=== PATIENT | male | born 1935 | race Two or more races ===

== ENCOUNTER 2023-04-19 23:56 | Inpatient (IN) | payer MEDICARE, OTHER ==
[~2023-04-19] VITALS: Ht 177.8 cm; Wt 69.9 kg
[2023-04-20] MEDS ORDERED: CEFTRIAXONE 1GM PREMIX 50 ML IV ONE (00:30)
[2023-04-20] MEDS ORDERED: ACETAMINOPHEN 650MG SUPP PR SCH (00:30)
[2023-04-20] MEDS ORDERED: CEFTRIAXONE 1GM PREMIX 50 ML IV NR (03:00)
[2023-04-20 04:52] LABS: HEMATOCRIT. 26.9 % (42.0-52.0); HEMOGLOBIN. 8.6 g/dL (14.0-18.0); MEAN CORPUSCULAR HEMOGLOBIN 25.6 pg (28.0-32.0); MEAN CORPUSCULAR HGB CONC 31.8 g/dL (31.0-37.0); MEAN CORPUSCULAR VOLUME 80.4 fL (80.0-94.0); MEAN PLATELET VOLUME 8.6 fl (7.4-10.4); PLATELET 292 x1000/uL (130-400); RED BLOOD CELL COUNT 3.35 mill/uL (4.7-6.1); RED CELL DISTRIBUTION WIDTH 15.1 % (11.6-14.6); WHITE BLOOD COUNT 24.3 x1000/uL (4.5-11.0)
[2023-04-20 04:58] LABS: INR 1.6; PROTHROMBIN TIME 16.4 sec (9.6-11.0)
[2023-04-20 05:02] LABS: DIFFERENTIAL COMMENT 1
[2023-04-20 05:09] LABS: AMMONIA < 10 uMol/L (<32)
[2023-04-20 05:18] LABS: ACETAMINOPHEN 11 ug/mL (10-30); ALANINE AMINOTRANSFERASE < 7 IU/L (10-49); ALBUMIN 3.1 g/dL (3.2-4.8); ASPARTATE AMINOTRANSFERASE 18 IU/L (<34); BILIRUBIN TOTAL 0.5 mg/dL (0.1-1.0); CALCIUM 9.8 mg/dL (8.7-10.4); CARBON DIOXIDE 25 mEq/L (21-32); CHLORIDE 107 mEq/L (98-107); CREATINE KINASE 100 IU/L (46-171); CREATININE 3.2 mg/dL (0.6-1.3); GLUCOSE 130 mg/dL (70-105); PROTEIN TOTAL 7.4 g/dL (6.0-8.3); SODIUM 144 mEq/L (136-145); UREA NITROGEN BLOOD 69 mg/dL (9-23)
[2023-04-20 06:09] LABS: PLATELET ESTIMATE NORMAL
[2023-04-20 06:22] LABS: POTASSIUM 2.1 mEq/L (3.5-5.1); TROPONIN I HIGH SENSITIVITY 243 ng/L (3.0-53)
[2023-04-20 06:23] LABS: ETHANOL BLOOD < 10 mg/dL (<10)
[2023-04-20] MEDS ORDERED: POTASSIUM CHLORIDE INJ 40 MEQ in DEXT 5% WATER 500 ML IV ONE (06:45)
[2023-04-20] MEDS: KCL 20MEQ/100ML X 2 FOR TOTAL KCL 40MEQ/200ML IV SCH ×2 (08:55→09:00)
[2023-04-20] MEDS ORDERED: KCL 20MEQ/100ML X 2 FOR TOTAL KCL 40MEQ/200ML IV SCH (12:30)
[2023-04-20] MEDS ORDERED: HYDROCODONE/ACETAMINOPHEN 5/325MG TABLET PO PRN (12:45)
[2023-04-20] MEDS ORDERED: CLONIDINE 0.1MG TABLET PO PRN (12:45)
[2023-04-20] MEDS ORDERED: MAGNESIUM/ALUMINUM HYDROXIDE/SIMETHICONE 30ML UDC PO PRN (12:45)
[2023-04-20] MEDS ORDERED: DEXTROSE 50% WATER 50ML SYRINGE IV PRN ×2 (13:00)
[2023-04-20] MEDS: SODIUM CHLORIDE 0.9% 1,000 ML IV SCH (13:12)
[2023-04-20] MEDS ORDERED: VANCOMYCIN 1.5GM/250ML 250 ML IV NR (14:00)
[2023-04-20] MEDS: PIPERACILLIN/TAZOBACTAM 3.375 G in DEXTROSE 5% WATER 50 ML IV SCH (15:06)
[2023-04-20] MEDS ORDERED: NALOXONE HCL 0.4MG/ML VIAL IV PRN (15:15)
[2023-04-20] MEDS ORDERED: KCL 20MEQ/100ML PREMIX 100 ML IV NR (16:00)
[2023-04-20] MEDS: BLOOD SUGAR DIAGNOSTIC STRIP TEST SCH ×2 (16:59→21:59)
[2023-04-20] MEDS: INSULIN LISPRO 100 UNITS/ML SUBCUT SCH ×2 (17:15→21:00)
[2023-04-20 21:33] LABS: CALCIUM 9.8 mg/dL (8.7-10.4); CARBON DIOXIDE 23 mEq/L (21-32); CHLORIDE 110 mEq/L (98-107); CREATININE 3.4 mg/dL (0.6-1.3); GLUCOSE 89 mg/dL (70-105); PHOSPHORUS 2.3 mg/dL (2.5-4.9); SODIUM 144 mEq/L (136-145); UREA NITROGEN BLOOD 77 mg/dL (9-23)
[2023-04-20] MEDS: ENOXAPARIN 30MG/0.3ML SYR SUBCUT SCH (21:53)
[2023-04-20 21:57] LABS: POTASSIUM 2.7 mEq/L (3.5-5.1)
[2023-04-20] MEDS ORDERED: POTASSIUM CHLORIDE INJ 40 MEQ in DEXT 5% WATER 500 ML IV NR (23:00)
[2023-04-21 03:41] VITALS: BP 99/67; PULSE 101; RESP 18; TEMP 97.8
[2023-04-21 04:00] VITALS: BP 67/43; PULSE 109; RESP 17; TEMP 98.4
[2023-04-21 07:01] LABS: HEMATOCRIT. 25.6 % (42.0-52.0); HEMOGLOBIN. 8.4 g/dL (14.0-18.0); MEAN CORPUSCULAR HGB CONC 32.8 g/dL (31.0-37.0); MEAN CORPUSCULAR VOLUME 79.4 fL (80.0-94.0); MEAN PLATELET VOLUME 8.7 fl (7.4-10.4); PLATELET 279 x1000/uL (130-400); RED BLOOD CELL COUNT 3.23 mill/uL (4.7-6.1); RED CELL DISTRIBUTION WIDTH 15.3 % (11.6-14.6); WHITE BLOOD COUNT 23.3 x1000/uL (4.5-11.0)
[2023-04-21 07:07] LABS: DIFFERENTIAL COMMENT 1
[2023-04-21 07:46] LABS: ALANINE AMINOTRANSFERASE 9 IU/L (10-49); ALBUMIN 2.9 g/dL (3.2-4.8); ASPARTATE AMINOTRANSFERASE 27 IU/L (<34); BILIRUBIN DIRECT 0.3 mg/dL (<=3.0); BILIRUBIN TOTAL 0.5 mg/dL (0.1-1.0); CALCIUM 9.8 mg/dL (8.7-10.4); CARBON DIOXIDE 22 mEq/L (21-32); CHLORIDE 110 mEq/L (98-107); CREATININE 3.9 mg/dL (0.6-1.3); GLUCOSE 110 mg/dL (70-105); PHOSPHORUS 1.8 mg/dL (2.5-4.9); PROTEIN TOTAL 6.9 g/dL (6.0-8.3); SODIUM 145 mEq/L (136-145); UREA NITROGEN BLOOD 89 mg/dL (9-23)
[2023-04-21] MEDS: INSULIN LISPRO 100 UNITS/ML SUBCUT SCH ×4 (07:50→21:00)
[2023-04-21 08:00] VITALS: BP 94/43; PULSE 63; RESP 22; TEMP 99
[2023-04-21 09:05] LABS: POTASSIUM 2.8 mEq/L (3.5-5.1); TROPONIN I HIGH SENSITIVITY 146 ng/L (3.0-53)
[2023-04-21] MEDS ORDERED: POTASSIUM CHLORIDE 20MEQ/PACKET PO SCH (10:00)
[2023-04-21] MEDS: PIPERACILLIN/TAZOBACTAM 3.375 G in DEXTROSE 5% WATER 50 ML IV SCH ×4 (11:17→21:30)
[2023-04-21] MEDS: PANTOPRAZOLE SODIUM 40 MG/VIAL IV SCH (11:17)
[2023-04-21 12:00] VITALS: BP 92/47; PULSE 74; RESP 20; TEMP 100.9
[2023-04-21] MEDS: BLOOD SUGAR DIAGNOSTIC STRIP TEST SCH ×3 (12:20→21:31)
[2023-04-21] MEDS: POTASSIUM CHLORIDE INJ 40 MEQ in DEXT 5% WATER 250 ML IV SCH ×2 (14:57→18:00)
[2023-04-21] MEDS: SODIUM CHLORIDE 0.9% 1,000 ML IV SCH (14:58)
[2023-04-21] MEDS ORDERED: VANCOMYCIN 1.25GM PMX (XELLIA) 250 ML IV NR (15:00)
[2023-04-21 16:00] VITALS: BP 101/54; PULSE 104; RESP 21; TEMP 99.3
[2023-04-21 17:06] LABS: MICROCYTOSIS 1+; PLATELET ESTIMATE NORMAL
[2023-04-21 20:00] VITALS: BP 120/54; PULSE 97; RESP 19; TEMP 97.8
[2023-04-21] MEDS: ENOXAPARIN 30MG/0.3ML SYR SUBCUT SCH (21:31)
[2023-04-22] VITALS: BP 119/89; PULSE 108; RESP 18; TEMP 98.1
[2023-04-22 04:00] VITALS: BP 107/60; PULSE 86; RESP 18; TEMP 97.2
[2023-04-22] MEDS: BLOOD SUGAR DIAGNOSTIC STRIP TEST SCH ×3 (06:38→21:00)
[2023-04-22] MEDS: INSULIN LISPRO 100 UNITS/ML SUBCUT SCH ×3 (06:51→21:00)
[2023-04-22 07:42] LABS: HEMATOCRIT. 24.6 % (42.0-52.0); MEAN CORPUSCULAR HEMOGLOBIN 25.8 pg (28.0-32.0); MEAN CORPUSCULAR HGB CONC 32.7 g/dL (31.0-37.0); PLATELET 262 x1000/uL (130-400); RED BLOOD CELL COUNT 3.12 mill/uL (4.7-6.1); RED CELL DISTRIBUTION WIDTH 15.4 % (11.6-14.6); WHITE BLOOD COUNT 19.1 x1000/uL (4.5-11.0)
[2023-04-22 07:53] LABS: ALANINE AMINOTRANSFERASE 10 IU/L (10-49); ALBUMIN 2.7 g/dL (3.2-4.8); ASPARTATE AMINOTRANSFERASE 24 IU/L (<34); BILIRUBIN DIRECT 0.3 mg/dL (<=3.0); BILIRUBIN TOTAL 0.5 mg/dL (0.1-1.0); CALCIUM 9.8 mg/dL (8.7-10.4); CARBON DIOXIDE 21 mEq/L (21-32); CHLORIDE 114 mEq/L (98-107); CREATININE 4.2 mg/dL (0.6-1.3); GLUCOSE 101 mg/dL (70-105); POTASSIUM 3.4 mEq/L (3.5-5.1); PROTEIN TOTAL 6.5 g/dL (6.0-8.3); SODIUM 147 mEq/L (136-145)
[2023-04-22 07:56] LABS: UREA NITROGEN BLOOD 102 mg/dL (9-23)
[2023-04-22 08:00] VITALS: BP 116/75; PULSE 110; RESP 21; TEMP 98.1
[2023-04-22 08:03] LABS: DIFFERENTIAL COMMENT 1
[2023-04-22] MEDS: PIPERACILLIN/TAZOBACTAM 3.375 G in DEXTROSE 5% WATER 50 ML IV SCH ×2 (08:59→21:00)
[2023-04-22] MEDS: PANTOPRAZOLE SODIUM 40 MG/VIAL IV SCH (09:00)
[2023-04-22] MEDS ORDERED: POTASSIUM CHLORIDE INJ 40 MEQ in DEXT 5% WATER 250 ML IV ONE (09:15)
[2023-04-22] MEDS ORDERED: KCL 20MEQ/100ML X 2 FOR TOTAL KCL 40MEQ/200ML IV SCH (10:00)
[2023-04-22] MEDS ORDERED: DEXT 5%/LACTATED RINGERS 1,000 ML IV SCH (10:15)
[2023-04-22 12:00] VITALS: BP 120/87; PULSE 102; RESP 20; TEMP 97.5
[2023-04-22] MEDS ORDERED: LORAZEPAM 2MG/ML INJ IV NR (12:00)
[2023-04-22] MEDS ORDERED: POTASSIUM PHOS,M-BASIC-D-BASIC 20 MMOL in DEXT 5% WATER 243.3333 ML IV NR (13:00)
[2023-04-22] MEDS: DEXTROSE 5% WATER 1,000 ML IV SCH ×2 (13:45→23:45)
[2023-04-22 15:55] LABS: MICROCYTOSIS 1+; PLATELET ESTIMATE NORMAL
[2023-04-22 16:00] VITALS: BP 120/89; PULSE 110; RESP 20; TEMP 97.3
[2023-04-22 18:08] LABS: HEMATOCRIT 23.8 % (42.0-52.0); HEMOGLOBIN 7.5 g/dL (14.0-18.0)
[2023-04-22 18:22] LABS: CALCIUM 10.1 mg/dL (8.7-10.4); CARBON DIOXIDE 19 mEq/L (21-32); CHLORIDE 116 mEq/L (98-107); CREATINE KINASE 25 IU/L (46-171); CREATININE 4.4 mg/dL (0.6-1.3); GLUCOSE 112 mg/dL (70-105); PHOSPHORUS 2.5 mg/dL (2.5-4.9); POTASSIUM 3.6 mEq/L (3.5-5.1); SODIUM 148 mEq/L (136-145)
[2023-04-22 18:38] LABS: UREA NITROGEN BLOOD 111 mg/dL (9-23)
[2023-04-22 20:00] VITALS: BP 101/47; PULSE 103; RESP 19; TEMP 99
[2023-04-22] MEDS ORDERED: VANCOMYCIN 750MG PREMIX 150 ML IV NR (20:00)
[2023-04-23] VITALS (31 sets, daily range): BP systolic 91–118; BP diastolic 44–98; PULSE 82–105; RESP 10–34; TEMP 97.7–99.9
[2023-04-23] MEDS: INSULIN LISPRO 100 UNITS/ML SUBCUT SCH ×4 (07:50→21:50)
[2023-04-23 07:53] LABS: HEMATOCRIT. 23.1 % (42.0-52.0); HEMOGLOBIN. 7.5 g/dL (14.0-18.0); MEAN CORPUSCULAR HEMOGLOBIN 25.7 pg (28.0-32.0); MEAN CORPUSCULAR HGB CONC 32.6 g/dL (31.0-37.0); MEAN CORPUSCULAR VOLUME 78.8 fL (80.0-94.0); MEAN PLATELET VOLUME 8.8 fl (7.4-10.4); PLATELET 247 x1000/uL (130-400); RED BLOOD CELL COUNT 2.93 mill/uL (4.7-6.1); RED CELL DISTRIBUTION WIDTH 15.5 % (11.6-14.6); WHITE BLOOD COUNT 15.4 x1000/uL (4.5-11.0)
[2023-04-23 08:05] LABS: DIFFERENTIAL COMMENT 1
[2023-04-23 08:13] LABS: CREATININE 4.4 mg/dL (0.6-1.3); POTASSIUM 3.1 mEq/L (3.5-5.1)
[2023-04-23] MEDS: BLOOD SUGAR DIAGNOSTIC STRIP TEST SCH ×4 (08:18→21:48)
[2023-04-23] MEDS: PANTOPRAZOLE SODIUM 40 MG/VIAL IV SCH (09:09)
[2023-04-23] MEDS: PIPERACILLIN/TAZOBACTAM 3.375 G in DEXTROSE 5% WATER 50 ML IV SCH ×2 (09:10→21:43)
[2023-04-23] MEDS: DEXTROSE 5% WATER 1,000 ML IV SCH (09:10)
[2023-04-23] MEDS ORDERED: POTASSIUM CHLORIDE 20MEQ/PACKET PO NR ×2 (09:30→16:28)
[2023-04-23] MEDS ORDERED: SODIUM CHLORIDE 0.9% 100 ML IV ONE (12:45)
[2023-04-23] MEDS: CITRIC ACID/SODIUM CITRATE SOLN 30ML UDC PO SCH ×2 (13:00→16:55)
[2023-04-23 14:06] LABS: ANISOCYTOSIS 1+; PLATELET ESTIMATE NORMAL
[2023-04-24] VITALS (48 sets, daily range): BP systolic 72–109; BP diastolic 49–75; PULSE 70–97; RESP 12–29; TEMP 97.4–98.6
[2023-04-24] MEDS: DEXTROSE 5% WATER 1,000 ML IV SCH ×3 (00:35→16:07)
[2023-04-24 05:43] LABS: HEMATOCRIT. 22.9 % (42.0-52.0); MEAN CORPUSCULAR HEMOGLOBIN 25.1 pg (28.0-32.0); MEAN CORPUSCULAR HGB CONC 30.8 g/dL (31.0-37.0); MEAN CORPUSCULAR VOLUME 81.6 fL (80.0-94.0); MEAN PLATELET VOLUME 8.9 fl (7.4-10.4); PLATELET 231 x1000/uL (130-400); RED CELL DISTRIBUTION WIDTH 15.8 % (11.6-14.6); WHITE BLOOD COUNT 13.1 x1000/uL (4.5-11.0)
[2023-04-24 06:06] LABS: CALCIUM 9.5 mg/dL (8.7-10.4); CREATININE 4.9 mg/dL (0.6-1.3); POTASSIUM 2.9 mEq/L (3.5-5.1)
[2023-04-24 06:25] LABS: DIFFERENTIAL COMMENT 1
[2023-04-24] MEDS: BLOOD SUGAR DIAGNOSTIC STRIP TEST SCH ×4 (06:30→20:49)
[2023-04-24] MEDS: INSULIN LISPRO 100 UNITS/ML SUBCUT SCH ×4 (07:00→20:53)
[2023-04-24] MEDS ORDERED: POTASSIUM CHLORIDE INJ 40 MEQ in DEXT 5% WATER 250 ML IV ONE (08:00)
[2023-04-24] MEDS: PANTOPRAZOLE SODIUM 40 MG/VIAL IV SCH (09:02)
[2023-04-24] MEDS: KCL 20MEQ/100ML X 2 FOR TOTAL KCL 40MEQ/200ML IV SCH ×2 (09:02→11:28)
[2023-04-24] MEDS: CITRIC ACID/SODIUM CITRATE SOLN 30ML UDC PO SCH ×3 (09:02→17:06)
[2023-04-24] MEDS: PIPERACILLIN/TAZOBACTAM 3.375 G in DEXTROSE 5% WATER 50 ML IV SCH ×2 (09:03→20:38)
[2023-04-24 09:37] LABS: PHOSPHORUS 3.4 mg/dL (2.5-4.9)
[2023-04-24] MEDS: MIDODRINE HCL 5MG TABLET PO SCH ×3 (11:27→17:06)
[2023-04-24 14:35] LABS: ANISOCYTOSIS 1+; HYPOCHROMASIA 1+; PLATELET ESTIMATE NORMAL
[2023-04-25] VITALS (44 sets, daily range): BP systolic 84–113; BP diastolic 45–70; PULSE 78–98; RESP 18–34; TEMP 98.3–100.6
[2023-04-25] MEDS: DEXTROSE 5% WATER 1,000 ML IV SCH (00:53)
[2023-04-25 06:00] LABS: HEMATOCRIT. 23.2 % (42.0-52.0); HEMOGLOBIN. 7.4 g/dL (14.0-18.0); MEAN CORPUSCULAR HEMOGLOBIN 25.6 pg (28.0-32.0); MEAN CORPUSCULAR HGB CONC 32.1 g/dL (31.0-37.0); PLATELET 277 x1000/uL (130-400); WHITE BLOOD COUNT 13.9 x1000/uL (4.5-11.0)
[2023-04-25 06:10] LABS: CALCIUM 9.3 mg/dL (8.7-10.4); CARBON DIOXIDE 19 mEq/L (21-32); CHLORIDE 108 mEq/L (98-107); CREATININE 4.8 mg/dL (0.6-1.3); GLUCOSE 164 mg/dL (70-105); PHOSPHORUS 2.8 mg/dL (2.5-4.9); SODIUM 142 mEq/L (136-145)
[2023-04-25 06:16] LABS: POTASSIUM 2.7 mEq/L (3.5-5.1); UREA NITROGEN BLOOD 109 mg/dL (9-23)
[2023-04-25] MEDS ORDERED: POTASSIUM CHLORIDE 20MEQ/PACKET PO NR (07:00)
[2023-04-25 07:03] LABS: DIFFERENTIAL COMMENT 1
[2023-04-25] MEDS: KCL 20MEQ/100ML PREMIX 100 ML IV SCH ×2 (07:10→10:12)
[2023-04-25] MEDS: BLOOD SUGAR DIAGNOSTIC STRIP TEST SCH ×4 (07:37→21:11)
[2023-04-25] MEDS: INSULIN LISPRO 100 UNITS/ML SUBCUT SCH ×4 (07:45→21:15)
[2023-04-25 09:35] LABS: ANISOCYTOSIS 1+; PLATELET ESTIMATE NORMAL
[2023-04-25] MEDS ORDERED: DEXT 5% WATER + KCL 40MEQ/L 1,000 ML IV SCH (10:00)
[2023-04-25] MEDS: CITRIC ACID/SODIUM CITRATE SOLN 30ML UDC PO SCH ×3 (10:10→17:13)
[2023-04-25] MEDS: MIDODRINE HCL 5MG TABLET PO SCH ×3 (10:11→17:13)
[2023-04-25] MEDS: PANTOPRAZOLE SODIUM 40 MG/VIAL IV SCH (10:12)
[2023-04-25] MEDS: PIPERACILLIN/TAZO 3.375G/50ML 50 ML IV SCH ×2 (10:14→21:22)
[2023-04-25] MEDS ORDERED: LORAZEPAM 2MG/ML INJ IV PRN (11:30)
[2023-04-25] MEDS ORDERED: VANCOMYCIN 500MG PREMIX 100 ML IV NR (12:00)
[2023-04-25] MEDS: POTASSIUM CHLORIDE INJ 40 MEQ in DEXTROSE 5% WATER 1,000 ML IV SCH (12:32)
[2023-04-25] MEDS: MENTHOL/LANOLIN/CALAMINE/ZN OX OINT 71GM TOP SCH ×2 (17:13→21:22)
[2023-04-25 21:53] LABS: POTASSIUM 3.6 mEq/L (3.5-5.1)
[2023-04-25] MEDS: ACETAMINOPHEN 650MG/20.3ML UDC PO PRN (21:56)
[2023-04-26] MEDS: POTASSIUM CHLORIDE INJ 40 MEQ in DEXTROSE 5% WATER 1,000 ML IV SCH ×2 (04:00→20:42)
[2023-04-26 07:20] LABS: HEMATOCRIT. 22.7 % (42.0-52.0); HEMOGLOBIN. 7.4 g/dL (14.0-18.0); MEAN CORPUSCULAR HEMOGLOBIN 25.8 pg (28.0-32.0); MEAN CORPUSCULAR HGB CONC 32.8 g/dL (31.0-37.0); MEAN CORPUSCULAR VOLUME 78.7 fL (80.0-94.0); PLATELET 289 x1000/uL (130-400); RED BLOOD CELL COUNT 2.89 mill/uL (4.7-6.1)
[2023-04-26 07:23] LABS: DIFFERENTIAL COMMENT 1
[2023-04-26] MEDS: BLOOD SUGAR DIAGNOSTIC STRIP TEST SCH ×4 (07:30→20:29)
[2023-04-26 07:32] LABS: CARBON DIOXIDE 19 mEq/L (21-32); CHLORIDE 108 mEq/L (98-107); CREATININE 4.8 mg/dL (0.6-1.3); GLUCOSE 180 mg/dL (70-105); POTASSIUM 3.3 mEq/L (3.5-5.1); SODIUM 141 mEq/L (136-145)
[2023-04-26 07:34] LABS: UREA NITROGEN BLOOD 123 mg/dL (9-23)
[2023-04-26 08:00] VITALS: BP 96/59; PULSE 72; RESP 24
[2023-04-26] MEDS: MENTHOL/LANOLIN/CALAMINE/ZN OX OINT 71GM TOP SCH ×4 (09:00→20:42)
[2023-04-26] MEDS: CITRIC ACID/SODIUM CITRATE SOLN 30ML UDC PO SCH ×3 (09:02→17:29)
[2023-04-26] MEDS: INSULIN LISPRO 100 UNITS/ML SUBCUT SCH ×4 (09:03→20:30)
[2023-04-26] MEDS: MIDODRINE HCL 5MG TABLET PO SCH ×3 (09:04→17:00)
[2023-04-26] MEDS: PANTOPRAZOLE SODIUM 40 MG/VIAL IV SCH (10:35)
[2023-04-26] MEDS: PIPERACILLIN/TAZO 3.375G/50ML 50 ML IV SCH ×2 (10:35→20:42)
[2023-04-26 15:40] LABS: ANISOCYTOSIS 1+; PLASMA CELLS 1 %; PLATELET ESTIMATE NORMAL
[2023-04-26 15:41] LABS: MICROCYTOSIS 1+
[2023-04-26 20:00] VITALS: BP 103/56; PULSE 81; RESP 14; TEMP 97.5
[2023-04-26 22:00] VITALS: BP 109/51; PULSE 87; RESP 21
[2023-04-27] VITALS: BP 103/60; PULSE 84; RESP 17; TEMP 96.1
[2023-04-27 02:00] VITALS: BP 108/55; PULSE 88; RESP 22
[2023-04-27 02:35] LABS: CLARITY URINE CLOUDY (CLEAR); COLOR URINE YELLOW (YELLOW); GLUCOSE URINE NEGATIVE (NEGATIVE); KETONES URINE NEGATIVE (NEGATIVE); LEUKOCYTE ESTERASE URINE 3+ (NEGATIVE); NITRITE URINE NEGATIVE (NEGATIVE); OCCULT BLOOD URINE 1+ (NEGATIVE); PROTEIN URINE 1+ (NEGATIVE); SPECIFIC GRAVITY URINE 1.015 (1.005-1.030); UROBILINOGEN URINE 0.2 E.U./dL (0.2-1.0)
[2023-04-27 04:00] VITALS: BP 102/61; PULSE 93; RESP 23; TEMP 97.2
[2023-04-27 04:47] LABS: WBC URINE TNTC /hpf (0-2)
[2023-04-27 04:56] LABS: SQUAMOUS EPITHELIAL CELL URINE FEW /lpf (RARE/1+)
[2023-04-27 04:57] LABS: BACTERIA URINE 2+
[2023-04-27 06:00] VITALS: BP 112/56; PULSE 85; RESP 16
[2023-04-27 07:29] LABS: HEMATOCRIT. 22.1 % (42.0-52.0); HEMOGLOBIN. 7.1 g/dL (14.0-18.0); MEAN CORPUSCULAR HEMOGLOBIN 25.6 pg (28.0-32.0); MEAN CORPUSCULAR HGB CONC 32.2 g/dL (31.0-37.0); MEAN CORPUSCULAR VOLUME 79.5 fL (80.0-94.0); MEAN PLATELET VOLUME 8.8 fl (7.4-10.4); PLATELET 300 x1000/uL (130-400); RED BLOOD CELL COUNT 2.78 mill/uL (4.7-6.1); RED CELL DISTRIBUTION WIDTH 15.6 % (11.6-14.6); WHITE BLOOD COUNT 11.5 x1000/uL (4.5-11.0)
[2023-04-27 07:50] LABS: DIFFERENTIAL COMMENT 1
[2023-04-27] MEDS: BLOOD SUGAR DIAGNOSTIC STRIP TEST SCH ×3 (08:17→17:30)
[2023-04-27] MEDS: PIPERACILLIN/TAZO 3.375G/50ML 50 ML IV SCH (09:11)
[2023-04-27] MEDS: PANTOPRAZOLE SODIUM 40 MG/VIAL IV SCH (09:11)
[2023-04-27] MEDS: CITRIC ACID/SODIUM CITRATE SOLN 30ML UDC PO SCH ×3 (09:12→18:48)
[2023-04-27] MEDS: MIDODRINE HCL 5MG TABLET PO SCH ×3 (09:12→18:49)
[2023-04-27] MEDS: INSULIN LISPRO 100 UNITS/ML SUBCUT SCH ×3 (09:13→18:00)
[2023-04-27] MEDS: MENTHOL/LANOLIN/CALAMINE/ZN OX OINT 71GM TOP SCH ×3 (09:14→18:49)
[2023-04-27 09:23] LABS: CALCIUM 8.8 mg/dL (8.7-10.4); CARBON DIOXIDE 21 mEq/L (21-32); CHLORIDE 109 mEq/L (98-107); CREATININE 4.8 mg/dL (0.6-1.3); GLUCOSE 198 mg/dL (70-105); POTASSIUM 3.2 mEq/L (3.5-5.1); SODIUM 143 mEq/L (136-145)
[2023-04-27 09:25] LABS: UREA NITROGEN BLOOD 120 mg/dL (9-23)
[2023-04-27] MEDS: ACETAMINOPHEN 650MG/20.3ML UDC PO PRN (09:28)
[2023-04-27] MEDS ORDERED: POTASSIUM CHLORIDE 20MEQ/PACKET PO NR (12:15)
[2023-04-27] MEDS: POTASSIUM CHLORIDE INJ 40 MEQ in DEXTROSE 5% WATER 1,000 ML IV SCH (13:34)
[2023-04-27 16:51] LABS: ANISOCYTOSIS 1+; MICROCYTOSIS 1+; PLATELET ESTIMATE NORMAL
[2023-04-27 20:25] VITALS: BP 124/67; PULSE 82; TEMP 97.9; O2SAT 100
== END 2023-04-27 21:52 | DRG 871 ==
LOC: ER 23:56 → 5WST 04-20 01:53 → EDBEDREQTM 04-20 02:03 → EDBEDREQ 04-20 02:03 → 6EST 04-20 22:15 → MICUNO 04-23 13:15 → 5EST 04-25 23:54
PROVIDERS: ADMIT Internal Medicine; ATTEND Internal Medicine
DX: A41.9 Sepsis, unspecified organism (principal); G93.41 Metabolic encephalopathy; E44.1 Mild protein-calorie malnutrition; N17.9 Acute kidney failure, unspecified; E87.20 Acidosis, unspecified; K56.7 Ileus, unspecified; Z66 Do not resuscitate; Z20.822 Contact with and (suspected) exposure to COVID-19; R65.20 Severe sepsis without septic shock; D64.9 Anemia, unspecified; E78.5 Hyperlipidemia, unspecified; E87.6 Hypokalemia; F02.80 Dementia in other diseases classified elsewhere, unspecified severity, without behavioral disturbance, psychotic disturbance, mood disturbance, and anxiety; G20.A1 Parkinson's disease without dyskinesia, without mention of fluctuations; H54.7 Unspecified visual loss; I12.9 Hypertensive chronic kidney disease with stage 1 through stage 4 chronic kidney disease, or unspecified chronic kidney disease; N18.1 Chronic kidney disease, stage 1; R62.7 Adult failure to thrive; E83.39 Other disorders of phosphorus metabolism; I48.91 Unspecified atrial fibrillation; I34.81 Nonrheumatic mitral (valve) annulus calcification; Z68.22 Body mass index [BMI] 22.0-22.9, adult
CPT/HCPCS: 36415; 71045; 71250; 74176; 76770; 80048; 80053; 80076; 80202; 80307; 80320; 80329; 81003; 82140; 82550; 82962; 83036; 83605; 83735; 83880; 84100; 84132; 84145; 84484; 85014; 85018; 85025; 85044; 87426; 87804; 93005; 93306; 99291; A6261; C9113; J0696; J1650; J1815; J2060; J2543; J3370; J3480; J3490; J7030; J7060; J7070; J7121; G0480